=== PATIENT | male | born 1990 | race Caucasian/White ===

== ENCOUNTER → 2019-06-30 | Day surgery (SDC) | payer BC ==
[~2019-06-30] VITALS: Ht 193 cm; Wt 90.7 kg
[~2019-06-30] MED LIST: NO HOME MEDICATION
[2019-06-30 10:55] VITALS: BP 101/54
[2019-06-30 11:10] VITALS: BP 124/85
[2019-06-30 11:24] VITALS: BP 118/76
== END | disposition home or self-care (01) ==
LOC: SDC 06-27 09:30
DX: R19.4 Change in bowel habit (principal); K21.0 Gastro-esophageal reflux disease with esophagitis; K64.1 Second degree hemorrhoids; K64.8 Other hemorrhoids; K44.9 Diaphragmatic hernia without obstruction or gangrene

== ENCOUNTER → 2020-05-30 | Outpatient (CLI) | payer BC | END | disposition home or self-care (01) | LOC: COVID19 12:38 | PROVIDERS: ATTEND Family Medicine | DX: Z20.828 Contact with and (suspected) exposure to other viral communicable diseases (principal) ==

== ENCOUNTER → 2021-06-26 | Outpatient (CLI) | payer BC | END | disposition home or self-care (01) | LOC: COVID19 16:24 | PROVIDERS: ATTEND Internal Medicine | DX: Z20.822 Contact with and (suspected) exposure to COVID-19 (principal) ==